=== PATIENT | female | born 1985 | race Caucasian/White ===

== ENCOUNTER 2019-06-03 15:23 | Emergency (ER) | payer MEDICAID, OTHER ==
[2019-06-03 15:53] LABS: ABS Lymphocytes 1.1 10^3/ul (1.0-4.8); ABS Monocytes 0.5 10^3/ul (0-0.8); ABS Neutrophils 8.8 10^3/ul (1.5-7.7); Eosinophil % 0.4 %; Hematocrit 35 % (35-47); Hemoglobin 11.6 g/dL (12.0-16.0); Lymphocyte % 10.3 %; Mean Corpuscular HGB Conc 33 g/dL (31-36); Mean Corpuscular Hemoglobin 27 pg (27-31); Mean Corpuscular Volume 83 fL (80-97); Mean Platelet Volume 8.5 fL (7.4-10.4); Nucleated Red Blood Cells % 0.1; Platelet Count 309 10^3/uL (150-450); Red Blood Count 4.25 10^6 /uL (3.70-4.87); Red Cell Distribution Width 15 % (10-15); White Blood Count 10.4 10^3/uL (3.5-10.8)
--- NOTE | 2019-06-03 16:20 | ED ---
Abdominal Pain/Female - HPI Summary HPI Summary: Patient is a 34 y/o F presenting to the ED for a chief complaint of suprapubic abdominal pain that began on 06/02/19. Patient also reports vaginal spotting on 06/02/19 which she initially believed was her menstrual period, but now believes is a miscarriage. No at-home test was completed. Patient reports the abdominal pain as cramping and as if she is "in labor." The abdominal pain is rated as a 3/10 in severity. Patient denies fever, myalgia, or headache. Patient is 3 months and had a vaginal delivery without complications. Patient has had 4 pregnancies in the past and denies taking oral contraceptives. Patient denies any significant PMHx, but admits a PSHx of appendectomy and a FMHx of breast cancer. - History of Current Complaint Chief Complaint: EDAbdPain Stated Complaint: ABDOMINAL PAIN,POSS MISCARRIAGE PER PT Time Seen by Provider: 06/03/19 16:18 Hx Obtained From: Patient Onset/Duration: Sudden Onset, Lasting Hours Timing: Hours Severity Initially: Moderate Severity Currently: Moderate Pain Intensity: 3 Pain Scale Used: 0-10 Numeric Location: Suprapubic Radiates: No Character: Cramping, Other: - Describes as "in labor" Aggravating Factor(s): Nothing Alleviating Factor(s): Nothing Associated Signs and Symptoms: Positive: Vaginal Bleeding, Other: - Negative myalgia or headache. Negative: Fever Allergies/Adverse Reactions: Allergies Allergy/AdvReac Type Severity Reaction Status Date / Time No Known Allergies Allergy Verified 06/03/19 16:18 PMH/Surg Hx/FS Hx/Imm Hx Previously Healthy: Yes Endocrine/Hematology History: Denies: Hx Diabetes, Hx Thyroid Disease Cardiovascular History: Denies: Hx Congestive Heart Failure, Hx Hypercholesterolemia, Hx Hypertension , Hx Peripheral Vascular Disease History: Denies: Hx Renal Disease Musculoskeletal History: Denies: Hx Arthritis, Hx Osteoporosis, Hx Scoliosis Sensory History: Denies: Hx Cataracts, Hx Contacts or Glasses, Hx Glaucoma, Hx Legally Blind, Hx Deafness Opthamlomology History: Denies: Hx Cataracts, Hx Contacts or Glasses, Hx Glaucoma, Hx Legally Blind EENT History: Denies: Hx Deafness Neurological History: Denies: Hx Headaches, Hx Seizures, Hx Transient Ischemic Attacks (TIA), Other Neuro Impairments/Disorders Psychiatric History: Reports: Hx Community Mental Health [facility] Denies: Hx Anxiety, Hx Depression - Surgical History Surgical History: Yes Surgery Procedure, Year, and Place: EAR TUBES CLEFT 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, [facility]Y Infectious Disease History: No Infectious Disease History: Denies: Traveled Outside the [place] in Last 30 Days - Family History Known Family History: Positive: Other - Breast cancer - Social History Occupation: Unemployed Lives: With Family Alcohol Use: Rare Alcohol Amount: 1X YEAR Hx Substance Use: No Substance Use Type: Reports: None Hx Tobacco Use: No Smoking Status (MU): Never Smoked Tobacco Have You Smoked in the Last Year: No Review of Systems Negative: Fever Positive: Abdominal Pain - Suprapubic Positive: other - Positive vaginal bleeding Negative: Myalgia Negative: Headache All Other Systems Reviewed And Are Negative: Yes Physical Exam - Summary Physical Exam Summary: Constitutional: Well-developed, Well-nourished, Alert. (-) Distressed Skin: Warm, Dry HENT: Normocephalic; Atraumatic Eyes: Conjunctiva normal Neck: Musculoskeletal ROM normal neck. (-) JVD, (-) Stridor, (-) Nuchal rigidity Cardio: Rhythm regular, rate normal, Heart sounds normal; Intact distal pulses; Radial pulses are 2+ and symmetric. (-) Murmur Pulmonary/Chest wall: Effort normal. (-) Respiratory distress, (-) Wheezes, (-) Rales Abd: Soft, (-) Distension, (-) Guarding, (-) Rebound. Mild suprapubic tenderness Musculoskeletal: (-) Edema Lymph: (-) Cervical adenopathy Neuro: Alert, Oriented x3 Psych: Mood and affect Normal Triage Information Reviewed: Yes Vital Signs On Initial Exam: Initial Vitals Temp Pulse Resp BP Pulse Ox 97.0 F 80 18 113/65 100 06/03/19 15:27 06/03/19 15:27 06/03/19 15:27 06/03/19 15:27 06/03/19 15:27 Vital Signs Reviewed: Yes Procedures - Sedation Patient Received Moderate/Deep Sedation with Procedure: No Diagnostics - Vital Signs Vital Signs Temp Pulse Resp BP Pulse Ox 06/03/19 15:27 97.0 F 80 18 113/65 100 - Laboratory Lab Results: Lab Results 06/03/19 06/03/19 Range/Units 15:45 15:45 WBC 10.4 (3.5-10.8) 10^3/uL RBC 4.25 (3.70-4.87) 10^6 /uL Hgb 11.6 L (12.0-16.0) g/dL Hct 35 (35-47) % MCV 83 (80-97) fL MCH 27 (27-31) pg MCHC 33 (31-36) g/dL RDW 15 (10-15) % Plt Count 309 (150-450) 10^3/uL MPV 8.5 (7.4-10.4) fL Neut % (Auto) 84.9 % Lymph % (Auto) 10.3 % Crawford % (Auto) 4.3 % Eos % (Auto) 0.4 % Baso % (Auto) 0.1 % Absolute Neuts (auto) 8.8 H (1.5-7.7) 10^3/ul Absolute Lymphs (auto) 1.1 (1.0-4.8) 10^3/ul Absolute Monos (auto) 0.5 (0-0.8) 10^3/ul Absolute Eos (auto) 0.0 (0-0.6) 10^3/ul Absolute Basos (auto) 0.0 (0-0.2) 10^3/ul Absolute Nucleated RBC 0.0 10^3/ul Nucleated RBC % 0.1 Blood Type A Positive Antibody Screen Pending Result Diagrams: 06/03/19 15:45 06/03/19 15:45 Lab Statement: Any lab studies that have been ordered have been reviewed, and results considered in the medical decision making process. - Ultrasound US Ultrasound Interpretation Completed By: Radiologist Summary of Ultrasound Findings: US IMPRESSION: THERE IS A SINGLE INTRAUTERINE WITH A HEART RATE OF 179 BPM. THE COMPOSITE ESTIMATED GESTATIONAL AGE IS ABOUT 8 WEEKS 4 DAYS. Reviewed by ED physician. Re-Evaluation - Re-Evaluation First Re-Evaluation Time: 17:31 Change: Unchanged Comment: At 17:31, bedside US showed positive IUP with positive cardiac. Abdominal Pain Fem Course/Dx - Course Course Of Treatment: 34 y/o p/w vaginal spotting and cramping. - labs notable for elevated beta hCG, bedside ultrasound with positive IUP. Official ultrasound shows positive IUP at approximately 8 weeks with heart rate in the 170s. Urine analysis w 3+ LE. Will treat w keflex. Blood type A+. - has OB in [place], f/u for threatened miscarraige - Diagnoses Provider Diagnoses: Threatened miscarriage, UTI (urinary tract infection) Discharge ED - Sign-Out/Discharge Documenting (check all that apply): Patient Departure - Discharge - Discharge Plan Condition: Stable Disposition: HOME Prescriptions: Cephalexin CAP* [Keflex CAP*] 500 mg PO BID 5 Days #10 cap Patient Education Materials: Threatened Miscarriage (ED), Urinary Tract Infection in (ED) Referrals: [facility] [Outside] Additional Instructions: You were seen in the ER for vaginal spotting and cramping. Your ultrasound showed that you approximate 8 weeks . Please take keflex twice a day for a urinary tract infection. Please follow up with your RELAY CHECKER about this. Return for worsening pain, or if you're concerned. It was a pleasure taking care if you today. - Billing Disposition and Condition Condition: STABLE Disposition: Home - Attestation Statements Document Initiated by Guadalupeibe: Yes Documenting Scribe: Petra Adrian Provider For Whom Obi is Documenting (Include Credential): Emmett Fortune MD Scribe Attestation: I, Petra Adrian, scribed for Emmett Fortune MD on 06/03/19 at 1855. Scribe Documentation Reviewed: Yes Provider Attestation: The documentation as recorded by the Petra messer accurately reflects the service I personally performed and the decisions made by me, Emmett Fortune MD Status of Scribe Document: Viewed
[2019-06-03 16:37] LABS: Albumin 4.2 g/dL (3.2-5.2); Albumin/Globulin Ratio 1.2 (1-3); BUN/Creatinine Ratio 16.4 (8-20); Calcium 9.2 mg/dL (8.6-10.3); EGFR Non-African American 128.1 (>60); Globulin 3.4 g/dL (2-4); Potassium 3.4 mmol/L (3.5-5.0); Total Bilirubin 0.6 mg/dL (0.2-1.0); Total Protein 7.6 g/dL (6.4-8.9)
[2019-06-03 18:46] LABS: Urine Appearance Turbid; Urine Bacteria 1+ (Absent); Urine Bilirubin Negative (Negative); Urine Blood 2+ (Negative); Urine Color Amber; Urine Glucose Negative (Negative); Urine Ketones 2+ (Negative); Urine Nitrite Negative (Negative); Urine Protein 1+(30 mg/dL) (Negative); Urine Red Blood Cell 1+(3-5/hpf) (Absent); Urine Specific Gravity 1.027 (1.010-1.030); Urine Squamous Epithelial Cell Present (Absent); Urine Transitional Epithelial Present (Absent); Urine Urobilinogen Negative (Negative); Urine White Blood Cell 2+(11-20/hpf) (Absent)
[2019-06-03] MEDS ORDERED: Cephalexin CAP* 500 MG PO ONE (18:48)
[2019-06-03 19:03] VITALS: BP 113/61
--- NOTE | 2019-06-05 06:25 | ED ---
Imaging and Labs Follow Up Follow Up Type: Labs/Cultures Labs/Culture Result: Urine culture preliminary shows 25-50,000 Escherichia coli. Patient was given Keflex for treatment of this UTI. This patient was 8 weeks and having symptoms of urinary tract infection. There is is no sensitivity report back at this time but is it is assumed that this antibiotic is adequate for treating the strand of bacteria. Patient was treated appropriately. Patient Communication/Plan: Awaiting sensitivity report. Nothing further at this time. Provider Diagnoses: Threatened miscarriage, UTI (urinary tract infection)
== END 2019-06-03 19:01 | disposition home or self-care (01) ==
LOC: ED 15:23
DX: O23.41 Unspecified infection of urinary tract in pregnancy, first trimester (principal); O20.0 Threatened abortion; Z3A.08 8 weeks gestation of pregnancy
CPT/HCPCS: 36415; 76815; 80053; 81003; 81015; 84702; 85025; 86850; 86900; 86901; 87077; 87086; 87186; 99282; A9270-GY